=== PATIENT | male | born 1940 | race Caucasian/White ===

== ENCOUNTER → 2016-06-10 | Outpatient (CLI) | payer MEDICARE, OTHER | LOC: GMAB 12:51 | PROVIDERS: ATTEND Family Medicine | DX: I10 Essential (primary) hypertension (principal); Z12.5 Encounter for screening for malignant neoplasm of prostate | CPT/HCPCS: 84443; G0103 ==

== ENCOUNTER → 2016-06-21 | Outpatient (CLI) | payer MEDICARE, OTHER | LOC: GMA 14:41 | PROVIDERS: ATTEND Nurse Practitioner Family | DX: R10.84 Generalized abdominal pain (principal) ==

== ENCOUNTER → 2016-06-25 | Outpatient (CLI) | payer MEDICARE, OTHER ==
--- NOTE | 2016-06-25 09:35 | US ---
EXAM DESCRIPTION: US ABDOMEN CLINICAL HISTORY: GENERALIZED ABDOMINAL PAIN COMPARISON: None Available. TECHNIQUE: Complete abdominal ultrasound was performed utilizing grayscale imaging. Static images were saved to the patient's medical record. FINDINGS: The liver is echogenic. No mass noted. Gallbladder is present. No evidence of cholelithiasis or cholecystitis. Common bile duct measures 6 mm in diameter. Pancreas is grossly unremarkable. The pancreatic tail is not visualized due to overlying bowel gas. Bilateral kidneys are visualized. No evidence of obstruction. The right kidney measures 12.4 cm in diameter, left measures 10.6. There are a few bilateral renal cysts. The largest is seen within the upper pole of left kidney and measures 4.5 x 3.4 x 3.1 cm in diameter. Abdominal aorta demonstrates normal distal tapering. IVC is unremarkable. IMPRESSION: Echogenic liver compatible with fatty infiltration. No hepatic mass noted. Multiple bilateral renal cysts. The largest is seen within the upper pole of left kidney and measures 4.5 x 3.4 x 3.1 cm. These cysts appear benign Electronically signed by: Gabriel Lind MD 06/25/2016 09:33
== END ==
LOC: US 08:15
PROVIDERS: ATTEND Nurse Practitioner Family
DX: R10.84 Generalized abdominal pain (principal); N28.1 Cyst of kidney, acquired

== ENCOUNTER → 2016-10-10 | Outpatient (CLI) | payer MEDICARE, OTHER ==
--- NOTE | 2016-10-11 10:23 | RAD ---
EXAM DESCRIPTION: Foot,Left 3 Views CLINICAL HISTORY: 75 years, Male, PN IN LEFT FOOT COMPARISON: No priors FINDINGS: Comminuted midshaft fracture third metatarsal. Slight lateral subluxation relatively little soft tissue swelling around the fracture. Posterior and plantar heel spurs. Mild degenerative change of the third PIP joint. IMPRESSION: Chronic comminuted fracture mid and distal shaft third metatarsal. Slight lateral subluxation. No joint space involvement. Electronically signed by: Jaycob Briones MD 10/11/2016 10:22 AM CDT
== END | disposition home or self-care (01) ==
LOC: RAD 09:00
PROVIDERS: ATTEND Orthopaedic Surgery
DX: M79.672 Pain in left foot (principal)

== ENCOUNTER → 2016-10-31 | Outpatient (CLI) | payer MEDICARE, OTHER ==
--- NOTE | 2016-10-31 08:49 | RAD ---
Procedure: XR FOOT 3 OR MORE VIEWS Exam Date: 10/31/2016 12:00 AM CDT Ordering Provider: EKTA GERMAN Clinical Indication: CLOSED FX OF METATARSAL BONE Comparison: October 10, 2016 Findings: No significant change in alignment of a comminuted fracture involving the mid/distal third metatarsal. There is slightly greater periosteal callus formation. No new fracture or focal osseous destruction. IMPRESSION: Healing comminuted fracture of the third metatarsal. Alignment is unchanged. Electronically signed by: Lisa Cheney MD 10/31/2016 8:49 AM CDT
== END ==
LOC: RAD 08:00
PROVIDERS: ATTEND Orthopaedic Surgery
DX: S92.302D Fracture of unspecified metatarsal bone(s), left foot, subsequent encounter for fracture with routine healing (principal)

== ENCOUNTER → 2016-12-09 | Outpatient (CLI) | payer MEDICARE, OTHER ==
--- NOTE | 2016-12-09 09:11 | RAD ---
EXAM DESCRIPTION: Foot,Left 3 Views CLINICAL HISTORY: 76 years, Male, UNSPECIFIED FX OF LEFT METATARSAL BONE(S) COMPARISON: October 31, 2016 TECHNIQUE: AP, lateral, and oblique views of the left foot FINDINGS: Interval slight maturation of callus formation surrounding the comminuted fracture of the third metatarsal shaft just distal to its midpoint is evident with incomplete bony union. Slight progression in the five week, interval since prior study of the callus density is evident with stable alignment. New fractures are not apparent. The bones are mildly osteopenic. Calcaneal spurring is unchanged. IMPRESSION: Slight maturation of callus formation at at the third metatarsal comminuted fracture with no change in alignment and incomplete bony union at this time. Electronically signed by: Chaz Jain MD 12/09/2016 9:09 AM CDT
== END | disposition home or self-care (01) ==
LOC: RAD 08:01
PROVIDERS: ATTEND Orthopaedic Surgery
DX: S92.302D Fracture of unspecified metatarsal bone(s), left foot, subsequent encounter for fracture with routine healing (principal)

== ENCOUNTER → 2017-01-07 | Outpatient (CLI) | payer MEDICARE, OTHER | END | disposition home or self-care (01) | LOC: NC 15:35 | PROVIDERS: ATTEND Family Medicine | DX: E11.40 Type 2 diabetes mellitus with diabetic neuropathy, unspecified (principal); I10 Essential (primary) hypertension; F32.9 Major depressive disorder, single episode, unspecified ==

== ENCOUNTER → 2017-05-06 | Outpatient (CLI) | payer MEDICARE, OTHER | END | disposition home or self-care (01) | LOC: NC 09:28 | PROVIDERS: ATTEND Family Medicine | DX: E11.40 Type 2 diabetes mellitus with diabetic neuropathy, unspecified (principal); I10 Essential (primary) hypertension ==

== ENCOUNTER → 2017-06-04 | Outpatient (CLI) | payer MEDICARE, OTHER | END | disposition home or self-care (01) | LOC: GMAB 14:38 | PROVIDERS: ATTEND Family Medicine | DX: L02.212 Cutaneous abscess of back [any part, except buttock and flank] (principal) ==

== ENCOUNTER 2017-07-15 10:36 | Emergency (ER) | payer MEDICARE, OTHER ==
[2017-07-15] MEDS ORDERED: IBUPROFEN 200 MG TAB PO ONE (11:14)
[2017-07-15] MEDS ORDERED: SODIUM CHLORIDE 0.9% 1000ML 500 ML IVS ONE (11:37)
--- NOTE | 2017-07-15 13:29 | CT ---
EXAM DESCRIPTION: Abdomen/Pelvis w/Contrast: Computed Tomography. CLINICAL HISTORY: RLQ pain COMPARISON: None. TECHNIQUE: Spiral-axial scans at 5.0 mm intervals through the abdomen and pelvis, after nonionic IV contrast. No oral contrast. Coronal and sagittal 2.0 mm reconstructions. No delayed scans. No adverse reactions. Total Exam DLP: 1644.96 mGy-cm. This exam was performed according to our departmental dose-optimization program which includes automated exposure control, adjustment of the mA and/or kV according to patient size and/or use of iterative reconstruction technique; to reduce radiation dose to as low as reasonably achievable (ALARA). FINDINGS: Lung bases and pleura: Atelectasis versus early infiltrate right lung base. No effusion bilaterally. Liver, Stomach, Spleen, Adrenal Glands: Mild diffuse low-density in the liver. No enlargement. No dilated hepatic ducts. Smooth capsule. No ascites. No focal lesions. No portal venous gas. Stomach negative. Other solid organs unremarkable. Pancreas, Gallbladder, Ducts: Gallbladder visualized. Minimal fatty infiltration of the pancreas. Ducts negative. Kidneys and Ureters: 3 cm cyst inferior pole left kidney. Almost 1 cm cyst abutting the inferior collecting system of the right kidney. No hydronephrosis or perinephric edema bilaterally. Ureters are unremarkable. Mesentery: No fatty stranding. Fascial thickening abutting the right paracolic gutter. Minimal fluid in the right paracolic gutter and right pelvis. No free air. Aorta: Moderate atherosclerotic calcification of the mid and distal abdominal aorta with calcification of the ostia of the major vessels originating from the aorta. Small Bowel: Thickening of the parks of the jejunum and proximal ileum with distention and small air-fluid levels on the gravity dependent wall. Transverse tracking and minimal distention of distal ileal loops. Terminal Ileum/Cecum: TI is unremarkable. Fecal material and fluid in the cecum mildly distended. Colon: Diffuse fecal material in the colon from the cecum to the sigmoid colon which is minimally redundant. Multiple diverticula in the distal descending colon and sigmoid colon without complications. Pelvic Organs: Prostate gland enlargement impressing on the seminal vesicles and the base of the urinary bladder. No radiodense stones in the urinary bladder or significant wall thickening. Minimal fluid in the anterior peritoneal reflection. Spine and Bony Pelvis: Diffuse atherosclerotic calcifications and spondylosis. Broad thoracolumbar levoscoliosis. Degenerative changes bilateral acetabula with joint space narrowing. Arthrosis in the right SI joint. Abdominal Wall/Back Soft Tissues: Unremarkable. IMPRESSION: 1. Dilation of the jejunum with wall thickening fluid in multiple small air-fluid levels abutting the gravity in dependent wall. Less distention with minimal fluid and minimal wall thickening in the ileum. No obstruction. This could represent early ischemic bowel disease. (Calcification in the ostia of the SMA and DELORES is noted at the aorta.) No free air. No portal venous gas. Diffuse small bowel inflammatory process, small bowel infection, vasculitis less likely. Appendix was not visualized. 2. Diffuse fecal obstipation in the colon with no significant air-fluid levels. 3. Minimal fascial thickening and free fluid in the right paracolic gutter and right pelvis but no free intraperitoneal air. 4. Spondylosis lumbar spine and arthrosis in the hip joints and right SI joint. Enlargement of the prostate gland. Electronically signed by: Rishabh Pierce MD 07/15/2017 1:28 PM DRUG ABUSE COUNSELOR
[2017-07-15 13:56] VITALS: O2SAT 96
[2017-07-15] MEDS ORDERED: PIPERACILLIN/TAZOBACTAM 3.375 GM in SODIUM CHLORIDE 0.9% 100ML 100 ML IVPB ONE (13:56)
[2017-07-15] MEDS ORDERED: PIPERACILLIN/TAZOBACTAM 3.375 GM VIAL IVPB ONE (13:58)
[2017-07-15] MEDS ORDERED: SODIUM CHLORIDE 0.9% 100ML 100 ML IVPB ONE (13:59)
--- NOTE | 2017-07-15 15:31 | ED.PDOC ---
History of Present Illness - General Chief Complaint: Abdominal Pain Stated Complaint: abdominal pain,loss of balance Time Seen by Provider: 07/15/17 11:13 Source: patient Exam Limitations: no limitations - History of Present Illness Initial Comments: The patient is a 76-year-old male presenting to the emergency room secondary to progressive abdominal pain for the last 5 days. The worst of his pain is down towards the right lower quadrant. No abdominal trauma. No history of pancreatitis. He still has his gallbladder and his appendix. He does have a borderline fever today with a temperature 100.3. He has had some mild nausea but no vomiting. No diarrhea. He denies constipation. No syncope or near syncope. He does have a history of muscular dystrophy and ambulates largely with a walker. He has had surgeries of his eyes, knee, low back and neck. He has a history of hypertension and diabetes treated with oral medications. No significant history of any coronary artery disease or cerebrovascular disease according to him. He did smoke for approximately 30 years but quit approximately 30 years ago. He also has a history of gastroesophageal reflux disease and peripheral neuropathy. Severity: moderate, severe Improving Factors: nothing Worsening Factors: nothing Associated Symptoms: diaphoresis, loss of appetite, nausea/vomiting Allergies/Adverse Reactions: Allergies NO KNOWN ALLERGY Allergy (Verified 07/15/17 11:03) Review of Systems - Review of Systems Constitutional: States: malaise EENTM: States: no symptoms reported Respiratory: States: no symptoms reported Cardiology: States: no symptoms reported Gastrointestinal/Abdominal: States: abdominal pain, nausea. Denies: constipation, diarrhea, vomiting Genitourinary: States: no symptoms reported Musculoskeletal: States: see HPI Skin: States: no symptoms reported Neurological: States: see HPI Endocrine: States: no symptoms reported All other Systems: No Change from Baseline Past Medical History (General) - Patient Medical History Hx Stroke: No Hx Congestive Heart Failure: No Hx Diabetes: Yes - Vaccination History Hx Influenza Vaccination: Yes Hx Pneumococcal Vaccination: Yes - Social History Hx Tobacco Use: Yes Family Medical History - Family History Father Family History: Unknown Living Status: Unknown Physical Exam - Physical Exam General Appearance: Alert, Other - he patient is obviously uncomfortable Eye Exam: bilateral normal Ears, Nose, Throat: hearing grossly normal - hearing aid in the left ear, normal ENT inspection, other - foreign body was removed from left ear and there is a small amount of pus present as well. Neck: full range of motion, supple Respiratory: lungs clear, normal breath sounds, no respiratory distress, no accessory muscle use Cardiovascular/Chest: normal peripheral pulses, regular rate, rhythm, no edema Peripheral Pulses: radial,right: 2+, radial,left: 2+, dorsalis pedis,right: 1+, dorsalis pedis,left: 1+ Gastrointestinal/Abdominal: soft, other - the patient is obeese. He does have some diffuse discomfort. There is significant guarding in the right lower quadrant. 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 The patient has been started on Zosyn and blood cultures have been taken for the possibility of a bacterial infection as the cause. He has been made nothing by mouth at this point. The primary concern on the differential list is small bowel ischemia possibly from a superior mesenteric artery stenosis. I discussed the patient with radiology and they feel the best option for this patient would be direct visualization with angiography. The patient is stable at this time. Fever has subsided. He is still in significant discomfort. Transfer for higher level of care and further evaluation. He does not take any blood thinners and has not been given any blood thinners at this time. - Results/Orders Results/Orders: Laboratory Tests 07/15/17 07/15/17 13:02 13:15 Lactic Acid 2.1 Total PSA 0.79 see attached lab work for outside laboratory work done today. White blood cell count is 17,900. Lactic acid is 2.1. CT scan of abdomen and pelvis with contrast shows inflammatory changes of the jejunum and ileum that are according to radiology consistent with ischemic changes. No perforation. No obvious bowel infarction. Departure - Departure Clinical Impression: Abdominal pain Qualifiers: Abdominal location: right lower quadrant Qualified Code(s): R10.31 - Right lower quadrant pain Leukocytosis, unspecified Qualifiers: Leukocytosis type: unspecified Qualified Code(s): D72.829 - Elevated white blood cell count, unspecified Disposition: Transfer to Hospital Transfer to Outside Facility - Transfer Information Accepting Provider:: dr jamil Accepting Facility: [facility] Reason for Transfer: required specialist not available
[2017-07-15 16:01] VITALS: BP 107/58; TEMP 99.8
== END 2017-07-15 16:01 | disposition short-term general hospital (02) ==
LOC: ER 10:36
DX: R10.31 Right lower quadrant pain (principal); D72.829 Elevated white blood cell count, unspecified; I10 Essential (primary) hypertension; E11.9 Type 2 diabetes mellitus without complications; Z87.891 Personal history of nicotine dependence
CPT/HCPCS: 36415; 74177; 83605; 84153; 87040; J2543; J7030; J7050

== ENCOUNTER → 2017-07-29 | Outpatient (CLI) | payer MEDICARE, OTHER | LOC: GMAB 14:35 | PROVIDERS: ATTEND Family Medicine | DX: R35.0 Frequency of micturition (principal); R05 Cough ==

== ENCOUNTER 2017-08-23 07:41 | Emergency (ER) | payer MEDICARE, OTHER ==
[2017-08-23 08:02] VITALS: TEMP 100.9
--- NOTE | 2017-08-23 09:01 | RAD ---
EXAM DESCRIPTION: Abdomen Series CLINICAL HISTORY: 76 years Male, fever, decreased uop COMPARISON: CT abdomen and pelvis dated July 15, 2017. Findings: Chest: Cardiac silhouette and pulmonary vascularity are within normal limits. Lungs are clear without focal consolidative infiltrates No pleural effusion. No pneumothorax Abdomen: There are several mildly dilated loops of small bowel in the left hemiabdomen as well as right lower abdominal quadrant, concerning for ileus versus small bowel obstruction. Moderate amount of fecal material is seen in the descending colon. No evidence for pneumatosis intestinalis, portal venous gas, or free air under the diaphragm. Phleboliths noted within the left pelvis. Degenerative changes noted of the lower lumbar spine and bilateral hip joints. Impression: 1. Several mildly dilated loops of small bowel in the left hemiabdomen as well as right lower abdominal quadrant, concerning for ileus versus small bowel obstruction. CT abdomen and pelvis with IV and oral contrast is recommended for further evaluation. 2. No radiographic evidence for acute cardiopulmonary process. Electronically signed by: Jareth Macdonald MD 08/23/2017 8:59 AM CDT Workstation: [id number]
[2017-08-23] MEDS ORDERED: ACETAMINOPHEN 325 MG TAB PO ONE (09:47)
--- NOTE | 2017-08-23 11:29 | CT ---
PROCEDURE: Abdomen/Pelvis w/Contrast HISTORY: increase wbc, fever, abn abd xray, Indication: Same as above Comparison: None . Technique: CT of the abdomen and pelvis was done with intravenous contrast. Images were obtained from the lung base to the level of the pubic symphysis in axial plane, followed by orthogonal sagittal and coronal reconstruction. Oral contrast was also given for the study. The patient was injected with contrast intravenously, without any documented immediate adverse reactions. This exam was performed according to our departmental dose-optimization program, which includes automated exposure control, adjustment of the mA and/or KV according to the patient's size and/or use of iterative reconstruction technique. FINDINGS: Images through the lung bases do not show any focal infiltrates or pleural effusions. The liver, gallbladder, pancreas, spleen and the bilateral adrenal glands appear unremarkable. The bilateral kidneys enhance with contrast in a normal fashion. Benign peripelvic and cortical cysts are seen in the bilateral kidneys. The urinary bladder is decompressed but presence of a Carter catheter. The prostate is mildly enlarged . The bilateral ureters and the bilateral periureteral soft tissues and fat planes are unremarkable. The small bowel appears unremarkable, without any evidence of small bowel obstruction or bowel wall thickening. There is no CT evidence of acute appendicitis, pericecal inflammatory change or ileocecal mesenteric adenitis. The ileocecal junction appears unremarkable. There is no CT evidence of acute colonic diverticulitis or colitis or large bowel obstruction. There is large bowel diverticulosis The splenic and portal veins are of normal caliber, without any filling defects. There is no pathological lymphadenopathy in the retroperitoneum or in the pelvic region. There is no evidence of free fluid or free air in the abdomen or the pelvic region. There is no clinically significant abdominal aortic aneurysm. There is no clinically significant inguinal or ventral hernia. The visualized lumbar spine shows multilevel degenerative change . The paravertebral soft tissues are unremarkable. The remainder of the pelvic structures are unremarkable. IMPRESSION: There are no acute findings in the abdomen or the pelvis. Mildly enlarged prostate. Large bowel diverticulosis without acute diverticulitis. There is no small or large bowel obstruction or ileus. Location of Interpretation: [facility] Electronically signed by: Stu Max MD 08/23/2017 11:27 AM CDT Workstation: [id number]
[2017-08-23] MEDS ORDERED: CIPROFLOXACIN 500 MG TAB PO ONE (11:57)
[2017-08-23] MEDS ORDERED: metroNIDAZOLE 500 MG TAB PO ONE (11:57)
--- NOTE | 2017-08-23 12:00 | ED.PDOC ---
History of Present Illness - General Chief Complaint: Problem Stated Complaint: urinary retention, weakness Time Seen by Provider: 08/23/17 07:44 Source: patient Exam Limitations: no limitations - History of Present Illness Initial Comments: The patient is a 76-year-old male presented to the emergency room secondary to difficulty with voiding overnight. He has recently been having difficulties with that and does see Dr. miller clinical evidence of sepsis.. He was given a handout catheters to use as needed but has been unable to successfully use them at home. He does have a low-grade fever this morning. He was seen here approximately 5 or 6 weeks ago for questionable small bowel ischemia and was transferred to [facility]. Apparently there they determined that it was infection rather than ischemia and he was placed on a course of antibiotics which he has finished a couple of weeks ago. 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 No focal evidence of infection. Timing/Duration: 24 hours Severity: moderate Improving Factors: nothing Worsening Factors: nothing Associated Symptoms: denies symptoms Allergies/Adverse Reactions: Allergies NO KNOWN ALLERGY Allergy (Verified 07/15/17 11:03) Home Medications: Ambulatory Orders Amitriptyline HCl [Elavil] 25 mg PO BEDTIME PRN 08/23/17 Bifidobacterium Infantis [Align] 4 mg PO DAILY 08/23/17 Ciprofloxacin [Cipro] 500 mg PO BID #20 tab 08/23/17 Gabapentin [Neurontin] 600 mg PO BEDTIME 08/23/17 Linaclotide [Linzess] 145 mcg PO DAILY PRN 08/23/17 Lisinopril [Lisinopril] 20 mg PO BID 08/23/17 Metronidazole 500 mg PO TID #30 tab 08/23/17 Metronidazole [Metronidazole] 500 mg PO TID 08/23/17 Pantoprazole Sodium 40 mg PO DAILY 08/23/17 Tamsulosin HCl [Tamsulosin HCl] 0.4 mg PO BID 08/23/17 metFORMIN HCL [Glucophage] 500 mg PO DAILY 08/23/17 Review of Systems - Review of Systems Constitutional: States: malaise, weakness EENTM: States: no symptoms reported Respiratory: States: no symptoms reported Cardiology: States: no symptoms reported Gastrointestinal/Abdominal: States: no symptoms reported Genitourinary: States: other - urinary retention Musculoskeletal: States: other - hronic generalized weakness Skin: States: no symptoms reported Neurological: States: no symptoms reported All other Systems: No Change from Baseline Past Medical History (General) - Patient Medical History Hx Stroke: No Hx Dementia: No Hx Asthma: No Hx of COPD: No Hx Cardiac Disorders: No Hx Congestive Heart Failure: No Hx Hypertension: Yes Hx Diabetes: Yes Hx Gastroesophageal Reflux: Yes Surgical History: tonsillectomy, other - Vaccination History Hx Influenza Vaccination: Yes Hx Pneumococcal Vaccination: Yes - Social History Hx Tobacco Use: Yes Family Medical History - Family History Father Family History: Unknown Living Status: Unknown Physical Exam - Physical Exam General Appearance: Alert, Comfortable, No apparent distress Eye Exam: bilateral normal Ears, Nose, Throat: hearing grossly normal - chronically decreased bilaterally, normal ENT inspection, normal pharynx Neck: full range of motion, supple, normal inspection Respiratory: lungs clear, normal breath sounds, no respiratory distress, no accessory muscle use Cardiovascular/Chest: normal peripheral pulses, no edema, other - egular rate Peripheral Pulses: radial,right: 2+, radial,left: 2+ Gastrointestinal/Abdominal: non tender, soft Rectal Exam: deferred Back Exam: no CVA tenderness, no vertebral tenderness Extremity: non-tender, no pedal edema, no calf tenderness, normal capillary refill Neurologic: cake knocker II-XII nml as tested, alert, normal mood/affect, oriented x 3 Skin Exam: normal color Comments: Vital Signs - 24 hr 08/23/17 08/23/17 08/23/17 07:45 08:45 09:15 Temperature 100.9 F H Pulse Rate [ 112 H 106 H 114 H left brachial] Respiratory 16 18 18 Rate Blood Pressure 148/85 142/73 155/85 [left brachial] O2 Sat by Pulse 94 L 96 96 Oximetry 08/23/17 08/23/17 10:15 11:38 Temperature Pulse Rate [ 113 H 100 H left brachial] Respiratory 20 20 Rate Blood Pressure 158/113 143/68 [left brachial] O2 Sat by Pulse 96 93 L Oximetry Progress - Progress Progress: 08/23/17 12:01 the patient a 76-year-old male presented to emergency room with some urinary retention and what appears to be a small urinary tract infection. The patient is going to be placed on ciprofloxacin and back on metronidazole for a period of approximately 10 days. The Carter catheter is going to be left in secondary to his urinary retention until his follow-up appointment in 3 or 4 days with his urologist. The patient does have a low-grade fever which may be due to the urinary tract infection. This will need to be followed by his primary care doctor. He does have a persistently elevated white blood cell count of 18,000 which will also need to be followed by his primary care doctor. This is at the same level that it was when it was checked here before. He may simply have a chronically elevated white blood cell count but this does need to be followed. No evidence of sepsis. The patient appears well- hydrated. Encourage oral intake and increased activity level. ER warnings are given for any worsening. - Results/Orders Results/Orders: 08/23/17 08:04 BLOOD CULTURE Stat 08/23/17 08:23 Catheter:Carter QSHIFT 08/23/17 08:37 URINE CULTURE W/COLONY COUNT Stat 08/23/17 09:06 Hold Metformin x 48Hrs [id number] Laboratory Results - last 24 hr 08/23/17 08/23/17 08/23/17 08:04 08:04 08:04 WBC 18.0 H RBC 4.83 Hgb 14.6 Hct 43.5 MCV 90.1 MCH 30.3 MCHC 33.6 RDW 15.0 H Plt Count 231 MPV 8.8 Absolute Neuts (auto) 15.60 H Absolute Lymphs (auto) 0.90 L Absolute Monos (auto) 1.40 H Absolute Eos (auto) 0.00 Absolute Basos (auto) 0.10 Neutrophils % 86.7 H Lymphocytes % 5.2 L Monocytes % 7.7 Eosinophils % 0.1 L Basophils % 0.3 PT 12.4 INR 1.100 PTT (SP) 31.1 Sodium 136 Potassium 3.8 Chloride 101 Carbon Dioxide 25 Anion Gap 13.8 BUN 8 Creatinine 0.50 L BUN/Creatinine Ratio 16.0 Random Glucose 183 H Serum Osmolality 275.0 Lactic Acid Calcium 9.4 Total Bilirubin 1.3 H AST 19 ALT 22 Alkaline Phosphatase 63 Creatine Kinase 67 CK-MB (CK-2) 1.7 CK-MB (CK-2) % Not Reportable Troponin I < 0.02 Serum Total Protein 7.5 Albumin 3.8 Globulin 3.7 H Albumin/Globulin Ratio 1.0 L Amylase 18 L Lipase 25 Urine Color Urine Appearance Urine pH Ur Specific [place] Urine Protein Urine Glucose (UA) Urine Ketones Urine Blood Urine Nitrite Urine Bilirubin Urine Urobilinogen Ur Leukocyte Esterase Urine RBC Urine WBC Ur Epithelial Cells Urine Bacteria 08/23/17 08/23/17 08:04 08:37 WBC RBC Hgb Hct MCV MCH MCHC RDW Plt Count MPV Absolute Neuts (auto) Absolute Lymphs (auto) Absolute Monos (auto) Absolute Eos (auto) Absolute Basos (auto) Neutrophils % Lymphocytes % Monocytes % Eosinophils % Basophils % PT INR PTT (SP) Sodium Potassium Chloride Carbon Dioxide Anion Gap BUN Creatinine BUN/Creatinine Ratio Random Glucose Serum Osmolality Lactic Acid 1.9 Calcium Total Bilirubin AST ALT Alkaline Phosphatase Creatine Kinase CK-MB (CK-2) CK-MB (CK-2) % Troponin I Serum Total Protein Albumin Globulin Albumin/Globulin Ratio Amylase Lipase Urine Color Yellow Urine Appearance Clear Urine pH 6.0 Ur Specific [place] 1.015 Urine Protein 30 Urine Glucose (UA) Negative Urine Ketones Trace Urine Blood Negative Urine Nitrite Negative Urine Bilirubin Negative Urine Urobilinogen 0.2 Ur Leukocyte Esterase Small H Urine RBC 0 Urine WBC 5-10 H Ur Epithelial Cells 0 Urine Bacteria 3+ H CT scan of abdomen and pelvis shows no evidence of any obstruction or ileus. No evidence of any ischemia. No evidence of any acute infection. No evidence of acute pathology. Lung bases are clear. Prostate is mildly enlarged. Departure - Departure Clinical Impression: Urinary tract infection Qualifiers: Urinary tract infection type: acute cystitis Hematuria presence: without hematuria Qualified Code(s): N30.00 - Acute cystitis without hematuria Disposition: Discharge to Home or Self Care Condition: Fair Departure Forms: ED Discharge - Pt. Copy, Patient Portal Self Enrollment Instructions: DI for Urinary Tract Infection (UTI) Diet: regular diet Activity: increase activity as tolerated Referrals: David Bernard MD [Primary Care Provider] - 1-2 Weeks Prescriptions: Ciprofloxacin [Cipro] 500 mg PO BID #20 tab Metronidazole 500 mg PO TID #30 tab Home Medications: Ambulatory Orders Amitriptyline HCl [Elavil] 25 mg PO BEDTIME PRN 08/23/17 Bifidobacterium Infantis [Align] 4 mg PO DAILY 08/23/17 Ciprofloxacin [Cipro] 500 mg PO BID #20 tab 08/23/17 Gabapentin [Neurontin] 600 mg PO BEDTIME 08/23/17 Linaclotide [Linzess] 145 mcg PO DAILY PRN 08/23/17 Lisinopril [Lisinopril] 20 mg PO BID 08/23/17 Metronidazole 500 mg PO TID #30 tab 08/23/17 Metronidazole [Metronidazole] 500 mg PO TID 08/23/17 Pantoprazole Sodium 40 mg PO DAILY 08/23/17 Tamsulosin HCl [Tamsulosin HCl] 0.4 mg PO BID 08/23/17 metFORMIN HCL [Glucophage] 500 mg PO DAILY 08/23/17 Additional Instructions: the patient a 76-year-old male presented to emergency room with some urinary retention and what appears to be a small urinary tract infection. The patient is going to be placed on ciprofloxacin and back on metronidazole for a period of approximately 10 days. The Acrter catheter is going to be left in secondary to his urinary retention until his follow-up appointment in 3 or 4 days with his urologist. The patient does have a low-grade fever which may be due to the urinary tract infection. This will need to be followed by his primary care doctor. He does have a persistently elevated white blood cell count of 18,000 which will also need to be followed by his primary care doctor. This is at the same level that it was when it was checked here before. He may simply have a chronically elevated white blood cell count but this does need to be followed. No evidence of sepsis. The patient appears well- hydrated. Encourage oral intake and increased activity level. ER warnings are given for any worsening.urine culture is being performed.
[2017-08-23 12:32] VITALS: BP 146/74; O2SAT 95
== END 2017-08-23 12:31 | disposition home or self-care (01) ==
LOC: ER 07:41
DX: N30.00 Acute cystitis without hematuria (principal); I10 Essential (primary) hypertension; E11.9 Type 2 diabetes mellitus without complications; K21.9 Gastro-esophageal reflux disease without esophagitis; Z79.899 Other long term (current) drug therapy

== ENCOUNTER → 2017-09-15 | Outpatient (CLI) | payer MEDICARE, OTHER | LOC: GMAB 13:30 | PROVIDERS: ATTEND Family Medicine | DX: R94.6 Abnormal results of thyroid function studies (principal); I10 Essential (primary) hypertension; E11.42 Type 2 diabetes mellitus with diabetic polyneuropathy; G71.0 Muscular dystrophy; E03.9 Hypothyroidism, unspecified ==

== ENCOUNTER → 2018-04-01 | Outpatient (CLI) | payer MEDICARE, OTHER | LOC: GMAE 10:34 | PROVIDERS: ATTEND Family Medicine | DX: G25.81 Restless legs syndrome (principal); E11.42 Type 2 diabetes mellitus with diabetic polyneuropathy ==

== ENCOUNTER → 2018-07-09 | Outpatient (CLI) | payer MEDICARE, OTHER | LOC: GMAE 11:27 | PROVIDERS: ATTEND Family Medicine | DX: E03.9 Hypothyroidism, unspecified (principal) ==